=== PATIENT | male | born 1940 | race Caucasian/White ===

== ENCOUNTER 2018-03-06 05:47 | Inpatient (IN) | payer OTHER ==
--- NOTE | 2018-03-05 11:08 | GHP ---
DATE OF ADMISSION: 03/06/2018 HISTORY: The patient is a 78-year-old male who has had prolonged problems with his right knee. He h as pain, swelling, limited motion, I have followed him for years, provided conservative management fo r his right knee arthritis including exercises, multiple rounds of viscosupplementation, and he has u sed appropriate medications. He has limitations of his activities of daily living, limited range of motion, gait abnormalities. He has had a left total knee arthroplasty that has been successful for h im. His x-rays show tricompartment right knee osteoarthritis, predominantly lateral compartment. He wishes to proceed now with a right total knee arthroplasty. PAST MEDICAL HISTORY: Remarkable for type 2 diabetes. He has hypertension, elevation of cholesterol , gout, and he has had prostate disease, as well as reflux. He also has a history of melanoma. He h as had an episode of atrial fibrillation years ago. PAST SURGICAL HISTORY: Include both shoulders, both knees. He has had a TURP procedure. He has had surgery for Dupuytren's contracture, his left total knee arthroplasty, ORIF of a left wrist fracture . CURRENT MEDICATIONS: Include metoprolol 25 mg p.o. daily, omeprazole 20 mg p.o. daily, montelukast 1 0 mg p.o. daily, amlodipine 5 mg-benazepril 40 mg capsules, allopurinol 300 mg p.o. daily. REVIEW OF SYSTEMS: Positive from the cardiac standpoint for his hypertension, elevated cholesterol; from the musculoskeletal system for his arthritis and gout; from the genitourinary standpoint for pro state disease. PHYSICAL EXAM: GENERAL: The patient is a well-developed, well-nourished male in no apparent distres s. HEAD/NECK: Normocephalic, atraumatic. CHEST: Clear. CARDIOVASCULAR: Regular rate and rhythm. ABDOMEN: Soft. NEUROLOGIC: The is alert orient x3. EXTREMITIES: Examination of the right lower extremity shows a slight flexion contracture of his right knee. He has tenderness along the joint l gio. He only has about 110 degrees of flexion. His neurovascular exam is intact. SKIN: Intact. IMPRESSION: Right knee osteoarthritis. PLAN: Right total knee arthroplasty. Benefits and risks of surgery have been reviewed with the teo ent. He understands that the risks, include infection, damage to blood vessel or nerve, failure or l oosening of the components and need for revision, blood clot in the leg or lungs bleeding and need fo r transfusion. He is well aware of the rehab process as he has successfully had his opposite knee re placed. He has signed his consent form and wishes to proceed with his right total knee arthroplasty. /[id number]/MODL
[2018-03-06] MEDS ORDERED: ROPIVACAINE 0.2% 80 MG, EPINEPHrine 0.2 MG, KETOROLAC TROMETHAMINE 30 MG in SYRINGE 0 ML IU ONE (06:00)
[2018-03-06] MEDS ORDERED: TRANEXAMIC ACID 1,000 MG in NS 100 ML IV ONE (06:00)
[2018-03-06] MEDS ORDERED: POVIDONE-IODINE 20 ML in SODIUM CL IRRIG SOLUTION 500 ML IRR ONE (06:00)
[2018-03-06] MEDS ORDERED: TRANEXAMIC ACID 2,000 MG in NS 100 ML IV ONE (06:00)
[2018-03-06] MEDS ORDERED: ceFAZolin 2 GM/DEXTROSE 100 ML IV ONE (06:05)
[2018-03-06] MEDS ORDERED: ACETAMINOPHEN 325 MG TAB PO ONE (06:05)
[2018-03-06] MEDS ORDERED: DEXAMETHASONE 4 MG/ML VIAL IVP ONE (06:05)
[2018-03-06] MEDS ORDERED: GABAPENTIN 300 MG CAP PO ONE (06:05)
[2018-03-06] MEDS ORDERED: FAMOTIDINE 20 MG TAB PO ONE (06:05)
[2018-03-06] MEDS ORDERED: ceFAZolin 1 GM/5 ML SYR ONE ×2 (06:40→06:43)
[2018-03-06 06:56] LABS: PLATELET COUNT 163 10^3/uL (150-400)
[2018-03-06] MEDS ORDERED: LR 1,000 ML IV ONE (06:56)
[2018-03-06] MEDS ORDERED: MIDAZOLAM 2 MG/2 ML VIAL IVP ONE (06:59)
--- NOTE | 2018-03-06 06:59 | PDANEPAE ---
ANE History of Present Illness right knee DJD, here for RTKA ANE Past Medical History - Cardiovascular History Hx Hypertension: Yes Hx Arrhythmias: Yes Hx Chest Pain: No Hx Coronary Artery / Peripheral Vascular Disease: No Hx CHF / Valvular Disease: No Hx Palpitations: No Cardiovascular History Comment: HEART MURMUR. DX A-FIB POST OP 2012 - Pulmonary History Hx COPD: No Hx Asthma/Reactive Airway Disease: Yes Hx Recent Upper Respiratory Infection: No Hx Oxygen in Use at Home: No Hx Sleep Apnea: No Sleep Apnea Screening Result - Last Documented: Positive Pulmonary History Comment: ASTHMA TRIGGERS PEANUTS. STABLE PULMONARY NODULES LT LOWER LOBE SINCE 2012 - Neurologic History Hx Cerebrovascular Accident: No Hx Seizures: No Hx Dementia: No Neurologic History Comment: HEAD CONCUSSION 1960 - Endocrine History Hx Diabetes: No Endocrine History Comment: PRE-DIABETIC WATCHES CARBS - Renal History Hx Renal Disorders: Yes Renal History Comment: TURP X2 - Liver History Hx Hepatic Disorders: No - Neurological & Psychiatric Hx Hx Neurological and Psychiatric Disorders: No - Cancer History Hx Cancer: Yes Cancer History Comment: REMVL MELANOMA LT JAW BONE - Congenital Disorder History Hx Congenital Disorders: No - GI History Hx Gastrointestinal Disorders: Yes Gastrointestinal History Comment: GERD - Other Health History Other Health History: OSTEOARTHRITIS. GOUT. TINNITUS. HARD OF HEARING - Chronic Pain History Chronic Pain: Yes (RT KNEE) - Surgical History Prior Surgeries: NAGI CATARACT 2018. LT TOTAL KNEE 12/2012. TURP X2. NAGI KNEE SCOPES. NAGI SHOULDER SX'S. NAGI DUPYTRENS. LT WRIST ORIF. TONSILLECTOMY ANE Review of Systems Review of Systems: - Exercise capacity METS (RN): 4 METS ANE Patient History - Allergies Allergies/Adverse Reactions: peanuts Allergy (Intermediate, Uncoded 01/19/13 13:08) asthma problems - Home Medications Home Medications: Allopurinol [Allopurinol 300 MG (RX)] 300 mg PO DAILY 02/05/12 [Last Taken 03/06 04:30] Amlodipine Besylate/Benazepril [Amlodipine-Benazepril 5-40 mg] 1 each PO DAILY 11/29/12 [Last Taken 03/06/18 04:30] Montelukast Sodium [Singulair] 10 mg PO HS 11/29/12 [Last Taken 03/05/18] Nabumetone [RELAFEN 750MG (RX)] 750 mg PO DAILY PRN 11/29/12 [Last Taken 2 Years Ago ~03/06/16] Omeprazole 20 mg PO DAILY 11/29/12 [Last Taken 03/05/18] Simvastatin [Zocor 20 mg (RX)] 20 mg PO HS 11/29/12 [Last Taken 03/05/18] Aspirin [Aspirin 81mg (*)] 81 mg PO DAILY 02/14/18 [Last Taken 02/27/18] Desloratadine 5 mg PO HS 02/14/18 [Last Taken 03/05/18] Fluticasone Nasal [Flonase Nasal [place] (RX)] 1 sprays NASAL DAILY PRN 02/14/18 [ Last Taken 3 Months Ago ~12/04/17] Lactase [Lactase 3000 Unit (*)] 3,000 unit PO TIDMEAL PRN 02/14/18 [Last Taken 03/05/18] Metoprolol Tartrate [Lopressor 25 mg (*)] 12.5 mg PO BID 02/14/18 [Last Taken 04:30] Multivitamins [Multivitamin (*)] 1 each PO DAILY 02/14/18 [Last Taken 02/27/18] - NPO status NPO Since - Liquids (Date): 03/06/18 NPO Since - Liquids (Time): 03:30 NPO Since - Solids (Date): 03/05/18 NPO Since - Solids (Time): 19:00 - Smoking Hx Smoking Status: Former smoker ANE Labs/Vital Signs - Labs Result Diagrams: 03/06/18 06:36 03/06/18 06:36 - Vital Signs Blood Pressure: 148/87 Heart Rate: 73 Respiratory Rate: 16 O2 Sat (%): 92 Height: 187.96 cm Weight: 102.058 kg ANE Physical Exam - Airway Neck exam: FROM Mallampati Score: Class 2 Mouth exam: poor dentition - Pulmonary Pulmonary: no respiratory distress, no rales or rhonchi - Cardiovascular Cardiovascular: regular rate and rhythym - ASA Status ASA Status: III ANE Anesthesia Plan Anesthesia Plan: GA with mask, spinal Regional Anesthesia: single shot NB Total IV Anesthesia: Yes
[2018-03-06] MEDS ORDERED: MIDAZOLAM 2 MG/2 ML VIAL ONE (07:00)
[2018-03-06] MEDS ORDERED: PHENYLEPHRINE HCL 100 MCG/ML SYR ONE (07:02)
[2018-03-06] MEDS ORDERED: BUPIVACAINE/DEXTROSE 7.5MG/ML 2 ML SPINAL AMP SP ONE (07:02)
[2018-03-06] MEDS ORDERED: fentaNYL 100 MCG/2 ML INJ ONE ×2 (07:03→09:20)
[2018-03-06] MEDS ORDERED: PROPOFOL/EMULSION 500 MG/50 ML BOTTLE IV ONE (07:03)
[2018-03-06] MEDS ORDERED: LIDOCAINE 2% 5 ML SDV ONE (07:03)
--- NOTE | 2018-03-06 07:23 | PDHPUP ---
History & Physical Update H&P update statement: This history and physical update is based on an assessment of the patient which was completed after admission or registration (within 24 hours), but prior to the surgery/procedure. no change H&P update: no change in patient's condition since H&P completed (no change)
[2018-03-06] MEDS ORDERED: ROPIVACAINE HCL 150 MG/30 ML INJ ONE (08:37)
[2018-03-06] MEDS ORDERED: PROPOFOL 200 MG/20 ML VIAL ONE (08:48)
[2018-03-06] MEDS ORDERED: DIAZEPAM 5 MG/ML 1 ML SYR IVP PRN (09:22)
[2018-03-06] MEDS ORDERED: NALOXONE HCL 0.4 MG/ML INJ IVP PRN (09:22)
[2018-03-06] MEDS ORDERED: HYDROmorphONE/DILAUDID 2 MG/ML INJ IVP PRN (09:22)
[2018-03-06] MEDS ORDERED: ONDANSETRON 4 MG/2 ML VIAL IVP PRN ×2 (09:22→09:42)
[2018-03-06] MEDS ORDERED: MEPERIDINE 25 MG/0.5 ML AMP IVP PRN (09:22)
[2018-03-06] MEDS ORDERED: fentaNYL 100 MCG/2 ML INJ IVP PRN (09:22)
[2018-03-06] MEDS ORDERED: ACETAMINOPHEN 500 MG TAB PO PRN (09:22)
[2018-03-06] MEDS ORDERED: oxyCODONE IR 5 MG TAB PO PRN (09:22)
[2018-03-06] MEDS ORDERED: PROMETHAZINE HCL 25 MG/ML INJ IVP PRN ×2 (09:22→09:42)
[2018-03-06] MEDS ORDERED: LACTULOSE 20 GM/30 ML UDCUP PO PRN (09:42)
[2018-03-06] MEDS ORDERED: MAGNESIUM HYDROXIDE 30 ML UDCUP PO PRN (09:42)
[2018-03-06] MEDS ORDERED: METOCLOPRAMIDE 10 MG/2 ML VIAL IVP PRN (09:42)
[2018-03-06] MEDS ORDERED: PROMETHAZINE HCL 25 MG SUPPR PR PRN (09:42)
[2018-03-06] MEDS ORDERED: CYCLOBENZAPRINE 10 MG TAB PO PRN (09:42)
[2018-03-06] MEDS ORDERED: diphenhydrAMINE 25 MG CAP PO PRN (09:42)
[2018-03-06] MEDS ORDERED: TEMAZEPAM 15 MG CAP PO PRN (09:42)
[2018-03-06] MEDS ORDERED: DIPHENOXYLATE/ATROPINE LOMOTIL 1 TAB PO PRN (09:42)
[2018-03-06] MEDS ORDERED: BISACODYL 10 MG SUPP PR PRN (09:42)
[2018-03-06] MEDS ORDERED: POLYETHYLENE GLYCOL 3350 17 GM PKT PO PRN (09:42)
[2018-03-06] MEDS ORDERED: ONDANSETRON DISINTEGRATING 4 MG TAB PO PRN (09:42)
[2018-03-06] MEDS ORDERED: KETOROLAC 15 MG/1 ML SDV IVP ONE (09:47)
--- NOTE | 2018-03-06 09:48 | POSTANESTH ---
Post Anesthetic Evaluation Cardiovascular Status: Normal, Stable Respiratory Status: Normal, Stable Level of Consciousness/Mental Status: Can Participate in Eval Pain Control: Adequate, Prn Tx Ordered Nausea/Vomiting Control: Adequate, Prn Tx Ordered Complications Possibly Related to Anesthesia: None Noted (moving bilat le a little on exam)
[2018-03-06] MEDS ORDERED: LR 1,000 ML IV SCH (10:00)
[2018-03-06] MEDS ORDERED: KETOROLAC 15 MG/1 ML SDV ONE (10:16)
--- NOTE | 2018-03-06 10:34 | GOP ---
DATE OF OPERATION: 03/06/2018 SURGEON: Tha Shanks MD SPORTS MANAGER: WENDY Hare LSA. PREOPERATIVE DIAGNOSIS: Right knee osteoarthritis. POSTOPERATIVE DIAGNOSIS: Right knee osteoarthritis. PROCEDURE PERFORMED: Right total knee arthroplasty. FINDINGS: SPECIMENS: Include excised bone. ESTIMATED BLOOD LOSS: Minimal. INDICATIONS: The patient is a 78-year-old male who presents with history, exam and x-rays consistent with a severely arthritic right knee. A right total knee arthroplasty is planned. DESCRIPTION OF PROCEDURE: The patient was taken to the operating room, and in the seated position he received a spinal block. He received preoperative antibiotics, as well as tranexamic acid. He was placed supine with a blanket beneath the right hip to neutralize his right leg rotation, he does have a significant flexion contracture. The right lower extremity was prepped and draped free with chlor hexidine in the usual fashion. The limb was elevated, exsanguinated, and the tourniquet inflated to 275 mmHg. I made a longitudinal incision in the midline. I used a medial parapatellar arthrotomy. I inverted the patella and prepared this 1st. I measured its thickness at 26 mm, I removed 9 mm of c artilage and bone and sized the patellar surface to a 41 diameter. I drilled peg holes. The trial c omponent fit nicely and restored the thickness of the patella. The knee was flexed. I drilled a hol e in the distal femur for an intramedullary alignment device, used a 5-degree valgus cut and a +4 cut to accommodate his flexion contracture. I sized the femur between a 7 and an 8 downsized to a 7, mo maddison the cutting block anterior to avoid notching and I completed the cuts. The 7 trial was a good fi t. I used an extramedullary alignment jig on the tibia 1st adjusting for rotation and posterior slop e and depth of cut. Perpendicular cut was made to the axis of the tibia. This was double checked fo r its alignment. I sized the tibial surface to a size 7. I dialed in the rotation and completed the tibial prep. The bone surfaces were irrigated. Methylmethacrylate cement was applied to all surfac es. The tibia, femoral, and patellar components were applied. Once the cement had hardened, I did t rial reductions with different articular inserts. A size 10 allowed full extension, appropriate liga ment stability, excellent rollback in flexion. The size 10 articular tray was snapped into place. T he tourniquet was let down after an hour. I infiltrated with a joint cocktail. A 2nd dose of tranex amic acid was given as well. The joint was irrigated with Betadine rinse, then standard saline antib iotic rinse. The arthrotomy was closed with interrupted [id number] sutures of 0 Mersilene. The subcutaneous tissue was closed with 2-0 Monocryl, and the skin with a running subcuticular Quill loc joselo stitch. The wound was then Steri-Stripped. 4x4s and sterile Webril applied, stocking and an Ac e wrap. There were no complications. DRAINS: There were no drains. COUNTS: All counts were correct. My neurosurgical nurse practitioner was a medical necessity for this knee replacement. SUMMARY OF COMPONENTS: This is a [employer] knee Oxinium femur crosslink polyethylene. All components cemented. Femur is a size 7, tibia size 7, patella 41 and the articular insert 10 m m. /[id number]/MODL
--- NOTE | 2018-03-06 10:37 | PDMN ---
Medical Necessity Medical necessity: [facility] S700 Knee Arthroplasty, Total: 78 yo s/p R TKA. Meets IP criteria for advanced age, multi comorbidities including HTN, heart murmur, afib, asthma, pre-diabetes, ASA III.
[2018-03-06] MEDS: ACETAMINOPHEN 325 MG TAB PO SCH ×2 (11:32→17:28)
[2018-03-06] MEDS ORDERED: NABUMETONE 750 MG TAB PO PRN (12:27)
[2018-03-06] MEDS ORDERED: FLUTICASONE NASAL 120 SPRAYS/16 GM MDI EACHNARE PRN (12:27)
[2018-03-06] MEDS: oxyCODONE IR 5 MG TAB PO PRN ×3 (12:49→20:31)
[2018-03-06] MEDS ORDERED: ceFAZolin 2 GM/DEXTROSE 100 ML IV SCH (14:00)
--- NOTE | 2018-03-06 15:18 | ASMTCMCOM ---
CM Note CM Note Notes: Patient is s/p R TKA today. Doing well. Likely discharge tomorrow. He'll be staying w his [id number] Bridgett in [place] ([address] [place], [address]). I sent a referral to [facility] for home PT. Case Management will follow. Date Signed: 03/06/2018 03:17 PM Electronically Signed By:Blanquita Ludwig RN
[2018-03-06] MEDS: ceFAZolin 2 GM/DEXTROSE 100 ML IV SCH (16:32)
[2018-03-06] MEDS: LACTASE 3,000 UNIT TAB PO PRN (18:45)
[2018-03-06] MEDS: ASPIRIN 81 MG CHEWABLE TAB PO SCH (20:28)
[2018-03-06] MEDS: METOPROLOL TARTRATE 25 MG TAB PO SCH (20:28)
[2018-03-06] MEDS: SENNOSIDES/DOCUSATE SODIUM TAB PO SCH (20:30)
[2018-03-06] MEDS: FAMOTIDINE 20 MG TAB PO SCH (20:30)
[2018-03-06] MEDS ORDERED: CETIRIZINE 10 MG TAB PO SCH (21:00)
[2018-03-06] MEDS ORDERED: MONTELUKAST SODIUM 10 MG TAB PO SCH (21:00)
[2018-03-06] MEDS ORDERED: ATORVASTATIN CALCIUM 10 MG TAB PO SCH (21:00)
[2018-03-07] MEDS: ceFAZolin 2 GM/DEXTROSE 100 ML IV SCH (01:01)
[2018-03-07] MEDS: ACETAMINOPHEN 325 MG TAB PO SCH ×3 (01:02→07:57)
[2018-03-07 07:30] VITALS: BP 147/86
[2018-03-07] MEDS: LACTASE 3,000 UNIT TAB PO PRN (07:56)
[2018-03-07] MEDS: ASPIRIN 81 MG CHEWABLE TAB PO SCH (08:02)
[2018-03-07] MEDS: METOPROLOL TARTRATE 25 MG TAB PO SCH (08:02)
[2018-03-07] MEDS: SENNOSIDES/DOCUSATE SODIUM TAB PO SCH (08:02)
[2018-03-07] MEDS: FAMOTIDINE 20 MG TAB PO SCH (08:09)
--- NOTE | 2018-03-07 08:26 | SOAPPROG ---
SOAP Progress Note Assessment/Plan: Assessment: 03/07/18 POD#1 R TKA, pain controlled, Hct 39, xray fine Plan: 03/07/18 08:22 PT/OT oxy, tyl, celebrex,asa, home and out pt PT Objective: Vital Signs Temp Pulse Resp BP Pulse Ox 36.4 C 75 14 147/86 H 96 03/07/18 07:30 03/07/18 07:30 03/07/18 07:30 03/07/18 07:30 03/07/18 07:30 Laboratory Results 03/07/18 04:31 03/06/18 06:36 03/06/18 03/07/18 03/08/18 05:59 05:59 05:59 Intake Total 3575 500 Output Total 1950 Balance 1625 500 ICD10 Worksheet Patient Problems: Problems Problem Status Onset Degenerative arthritis of left knee Acute
--- NOTE | 2018-03-07 08:34 | PDIAF ---
- Diagnosis Diagnosis: right total knee Code Status: Full Code - Medication Management Discharge Medications: electronically signed and located in the Home Medication List. - Orders Diet Recommendation: no restrictions on diet Diet Texture: Regular Texture Diet Lance Stockings Discontinue Date: use for 2 weeks Wound Care Instructions: keep wound clean and dry, covered Activity/Weight Bearing Restrictions: wt bear as tolerated, full rom, gait training - Follow Up Care Current Providers and Referrals: NONE *PRIMARY CARE P,. [Primary Care Provider] -
[2018-03-07] MEDS ORDERED: BENAZEPRIL HCL 20 MG TAB PO SCH (09:00)
[2018-03-07] MEDS ORDERED: MULTIVITAMINS 1 EACH TAB PO SCH (09:00)
[2018-03-07] MEDS ORDERED: AMLODIPINE BESYLATE 5/BENAZEPRIL 20MG 1 EACH CAP PO SCH (09:00)
[2018-03-07] MEDS ORDERED: PANTOPRAZOLE SODIUM 40 MG TAB PO SCH (09:00)
[2018-03-07] MEDS ORDERED: ALLOPURINOL 300 MG TAB PO SCH (09:00)
--- NOTE | 2018-03-07 10:39 | PDIAF ---
- Diagnosis Diagnosis: right total knee Code Status: Full Code - Medication Management Discharge Medications: electronically signed and located in the Home Medication List. - Orders Services needed: Physical Therapy (home PT for right total knee, after 1-2 wks may progress to out patient PT) Diet Recommendation: no restrictions on diet Diet Texture: Regular Texture Diet Lance Stockings Discontinue Date: use for 2 weeks Wound Care Instructions: keep wound clean and dry, covered Activity/Weight Bearing Restrictions: wt bear as tolerated, full rom, gait training Additional Instructions: [facility] - Follow Up Care Current Providers and Referrals: NONE *PRIMARY CARE P,. [Primary Care Provider] -
--- NOTE | 2018-03-07 12:26 | ASMTLACE ---
LACE Length of stay for Answers: 2 days current admission Acuity / Level of Answers: Yes Care: Did the patient have an inpatient admission? Comorbidities - select Answers: Opioid dependence all that apply / Chronic pain Other Notes: HTN; Pre-luis betic; AFib # of Emergency department Answers: 0 visits in the last 6 months Score: 10 Date Signed: 03/07/2018 12:25 PM Electronically Signed By:ELIDIA Garcia
--- NOTE | 2018-03-07 12:26 | ASMTCMCOM ---
CM Note CM Note Notes: Pt medically stable for d/c with [facility], Rosalina at [facility] notified and orders sent in [employer]. Date Signed: 03/07/2018 12:26 PM Electronically Signed By:ELIDIA Garcia
--- NOTE | 2018-03-07 15:17 | ASDISCHSUM ---
Discharge Information Plan Status:Home with Home Health Medically Cleared to Leave: Discharge Date:03/07/2018 02:03 PM CM D/C Disposition: ADT D/C Disposition:HHSNOTBCH Projected Discharge Date:03/07/2018 11:00 AM Transportation at D/C: Discharge Delay Reason: Follow-Up Date:03/07/2018 11:00 AM Discharge Slot: Final Diagnosis: Placement Information Referral Type:*Home Health Care Services Referral ID:[id number] Provider Name:[facility] Address 1:[address] Address 2: City:[place] Selection Factors: State:[place] Patient Contact Information Contact Name:RIO Relationship:Other Address:[address] City:[place] Alternate Phone: State/Zip Code:[place] [address] Email: Financial Information Financial Class:Medicare Primary Plan Desc:MEDICARE INPATIENT Primary Plan Number:[id number] Secondary Plan Desc:CATHI PPO Secondary Plan Number:[id number] Assessment Information [facility] CM Progress Note CM Note CM Note Notes: Patient is s/p R TKA today. Doing well. Likely discharge tomorrow. He'll be staying w his [id number]-ftm Bridgett in [place] ([address] [place], [address]). I sent a referral to [facility] for home PT. Case Management will follow. Date Signed: 03/06/2018 03:17 PM Electronically Signed By:Blanquita Ludwig RN LACE LACE Length of stay for Answers: 2 days current admission Acuity / Level of Answers: Yes Care: Did the patient have an inpatient admission? Comorbidities - select Answers: Opioid dependence all that apply / Chronic pain Other Notes: HTN; Pre-luis betic; AFib # of Emergency department Answers: 0 visits in the last 6 months Score: 10 Date Signed: 03/07/2018 12:25 PM Electronically Signed By:ELIDIA Garcia [facility] CM Progress Note CM Note CM Note Notes: Pt medically stable for d/c with [facility], Rosalina at [facility] notified and orders sent in [facility]. Date Signed: 03/07/2018 12:26 PM Electronically Signed By:ELIDIA Garcia Intervention Information
== END 2018-03-07 14:03 | disposition home health service (06) | DRG 470 ==
LOC: F3E 05:47 → F3N 10:30
PROVIDERS: ADMIT Orthopaedic Surgery; ATTEND Orthopaedic Surgery
PROC: 0SRC0J9 Replacement of Right Knee Joint with Synthetic Substitute, Cemented, Open Approach (ICD-10-PCS; principal; 2018-03-06 07:15)
DX: M17.11 Unilateral primary osteoarthritis, right knee (principal); E11.9 Type 2 diabetes mellitus without complications; I10 Essential (primary) hypertension; E78.00 Pure hypercholesterolemia, unspecified; M10.9 Gout, unspecified; K21.9 Gastro-esophageal reflux disease without esophagitis; Z85.820 Personal history of malignant melanoma of skin; Z96.652 Presence of left artificial knee joint; Z87.891 Personal history of nicotine dependence
CPT/HCPCS: 97116-GP; 97161-GP; 97165-GO; 97530-GP; C1713; J0171; J0690; J1100; J1885; J2250; J2370; J2704; J2795; J3010